=== PATIENT | male | born 2000 | race Caucasian/White ===

== ENCOUNTER 2020-12-04 13:13 | Emergency (ER) | payer OTHER ==
[~2020-12-04] VITALS: Ht 177.8 cm; Wt 75.6 kg
[2020-12-04] MEDS ORDERED: AMPICILLIN SOD/SULBACTAM SOD 3 GM in D5W MINI-BAG PLUS 100 ML IV ONE (16:45)
[2020-12-04] MEDS ORDERED: dexameTHASONE 20MG/5ML VIAL (J1100 PER 1MG) IV ONE (16:45)
[2020-12-04 17:15] LABS: BASO # 0.1 10^3/uL (0.0-0.2); BASO % 0.9 % (0.0-1.0); EOS % 0.3 % (0.0-3.0); HEMATOCRIT 45.6 % (42.0-52.0); HEMOGLOBIN 15.6 g/dl (13.5-17.5); LYMPH % 53.4 % (24.0-44.0); MEAN CORPUSCULAR HEMOGLOBIN 31.5 pg (27.0-33.0); MEAN CORPUSCULAR HGB CONC 34.2 g/dl (32.0-36.5); MEAN CORPUSCULAR VOLUME 91.9 fl (80.0-96.0); MONO # 1.2 10^3/uL (0.0-0.8); NEUTROPHILS # 5.5 10^3/uL (1.5-8.5); NEUTROPHILS % 37.1 % (36.0-66.0); PLATELET COUNT, AUTOMATED 168 10^3/uL (150-450); RED BLOOD COUNT 4.96 10^6/uL (4.30-6.10); WHITE BLOOD COUNT 14.9 10^3/uL (4.0-10.0)
[2020-12-04] MEDS ORDERED: ISOVUE-370 76% 100ML VIAL As Ordered ONE (17:25)
[2020-12-04 17:33] LABS: C REACTIVE PROTEIN QUANTITATIV 0.68 MG/DL (0.00-0.30); MONO SCRN POSITIVE (NEGATIVE)
[2020-12-04 17:36] LABS: ERYTHROCYTE SEDIMENTATION RATE 4 mm/hr (0-15)
--- NOTE | 2020-12-04 19:18 | REPVR ---
PROCEDURE INFORMATION: Exam: CT Neck With Contrast Exam date and time: 12/04/2020 5:27 PM Age: 20 years old Clinical indication: Abscess, tonsil; Throat pain; Additional info: ? Abscess right tonsil TECHNIQUE: Imaging protocol: Computed tomography images of the neck with contrast. Radiation optimization: All CT scans at this facility use at least one of these dose optimization techniques: automated exposure control; mA and/or kV adjustment per patient size (includes targeted exams where dose is matched to clinical indication); or iterative reconstruction. Contrast material: ISOVUE 370; Contrast volume: 75 ml; Contrast route: INTRAVENOUS (IV); COMPARISON: No relevant prior studies available. FINDINGS: Orbital cavity: The imaged portions of the globes and orbits are intact and normal. Mastoid air cells: The mastoid air cells are well aerated. Auditory system: Unremarkable. The middle ear spaces are clear. Paranasal sinuses: There is mild mucosal thickening in the ethmoid sinuses, maxillary sinuses, and right frontal sinus. The frontal sinuses were not fully imaged. No air-fluid levels are seen in the sinuses. Nasal cavity: Unremarkable. Nasopharynx: There is moderate hypertrophy of the adenoids. Oral Cavity: Unremarkable. Unremarkable. Dental: No dental caries or periapical abscess are noted. There is an unerupted tooth just above the periapical regions of the right upper canine and right upper 1st premolar. Oropharynx: There is a striated pattern of enhancement involving the severely enlarged bilateral palatine tonsils, which is compatible with bilateral palatine tonsillitis. There is a 6 mm x 8 mm x 10 mm low-attenuation region in the left palatine tonsil (image 28 of the axial series 201 and image 35 of the coronal series 202), which may represent phlegmonous change or an abscess. No abscess is identified in the right palatine tonsil. Hypopharynx: Unremarkable. Larynx: Unremarkable. No swelling of the epiglottis. No mass. Retropharyngeal space: Unremarkable. No retropharyngeal edema or fluid collection. Submandibular/Parotid glands: Unremarkable. Glands are normal in size. Thyroid: Unremarkable. Lymph nodes: There is left level 1A, bilateral level 1B, bilateral level 2A, and bilateral level 2B cervical lymphadenopathy. Trachea: There is a 9 mm tracheal diverticulum arising from the right posterolateral wall of the trachea. Lungs: The imaged lung apices are clear. The lungs were not fully imaged. Bones/joints: There is no fracture or dislocation. There is a radiolucent lesion in the C5 vertebral body, which may represent an intraosseous hemangioma or lipoma. Vasculature: The vertebral arteries, common carotid arteries, internal carotid arteries, and external carotid arteries are patent and there is no dissection. The internal jugular veins are patent. Soft tissues: There are regions of low attenuation involving the right medial pterygoid muscle, which may represent myositis (images 24 and 28 of the axial series 201). No soft tissue fluid collection. IMPRESSION: 1. Bilateral palatine tonsillitis. 2. 6 mm x 8 mm x 10 mm low-attenuation region in the left palatine tonsil, which may represent phlegmonous change or an abscess. No right palatine tonsillar abscess. 3. Regions of low attenuation involving the right medial pterygoid muscle, which may represent myositis. 4. Left level 1A, bilateral level 1B, bilateral level 2A, and bilateral level 2B cervical lymphadenopathy. Electronically signed by: Dg Frazier On 12/04/2020 19:18:39 PM
[2020-12-04] MEDS ORDERED: PRED20TA PO (19:36)
[2020-12-04 19:51] VITALS: BP 140/83
--- NOTE | 2020-12-05 20:59 | ED PDOC ---
Post-Departure Follow-Up ct neck faxed to [facility] for [facility] Latonia Baird MD Dec 05, 2020 20:59
== END 2020-12-04 19:54 | disposition home or self-care (01) ==
LOC: M ED 13:13
DX: J03.90 Acute tonsillitis, unspecified (principal); B27.00 Gammaherpesviral mononucleosis without complication
CPT/HCPCS: 36415; 70491; 80047; 85025; 85652; 86140; 86308; 87880; 96365; 96366; 96375; 99284; J1100; Q9967